=== PATIENT | male | born 1985 | race African-American/Black ===

== ENCOUNTER 2020-03-09 12:59 | Emergency (ER) | payer MEDICAID, OTHER ==
[~2020-03-09] VITALS: Ht 172.7 cm; Wt 77.0 kg
[2020-03-09] MEDS ORDERED: IBUPROFEN 600MG TABLET PO NR (15:44)
[2020-03-09 17:22] VITALS: BP 130/78
== END 2020-03-09 17:23 | disposition home or self-care (01) ==
LOC: ER 13:25
DX: S01.01XA Laceration without foreign body of scalp, initial encounter (principal); Y08.02XA Assault by strike by baseball bat, initial encounter; Y93.89 Activity, other specified; Y92.89 Other specified places as the place of occurrence of the external cause
CPT/HCPCS: 99284